=== PATIENT | male | born 1945 | race Hispanic/Latino ===

== ENCOUNTER 2023-04-18 05:58 | Day surgery (SDC) | payer OTHER ==
[2023-04-17 15:43] LABS: BASOPHILS # (AUTO) 0.05 K/uL (0.00-0.20); BASOPHILS % (AUTO) 0.7 % (0.0-5.0); EOSINOPHILS % (AUTO) 3.9 % (0.0-8.0); IMMATURE GRANULOCYTE ABSOLUTE 0.03 K/uL (0-1); LYMPHOCYTES # (AUTO) 1.9 K/uL (1.0-4.8); MEAN CORPUSCULAR HGB CONC 32.6 g/dL (32.0-36.0); MONOCYTES # (AUTO) 0.9 K/uL (0.1-1.0); MONOCYTES % (AUTO) 11.1 % (3.0-13.0); NEUTROPHILS # (AUTO) 4.5 K/uL (1.8-7.7); NEUTROPHILS % (AUTO) 58.9 % (40.0-77.0); PLATELET COUNT (AUTO) 148 K/uL (130-400); RED BLOOD CELL COUNT(AUTO) 4.27 MIL/uL (4.50-6.20); RED CELL DISTRIBUTION WIDTH 14.2 % (11.0-15.5); WHITE BLOOD COUNT (AUTO) 7.6 K/uL (4.8-10.8)
[2023-04-17 15:47] VITALS: BP 164/78; PULSE 62; RESP 19
[2023-04-17 16:02] LABS: CREATININE 1.8 mg/dL (0.5-1.5); POTASSIUM 4.3 mmol/L (3.5-5.1)
[2023-04-18] VITALS (16 sets, daily range): BP systolic 110–149; BP diastolic 61–89; PULSE 40–129; RESP 9–16
[~2023-04-18] VITALS: Ht 172.7 cm; Wt 71.5 kg
[~2023-04-18 05:58] MED LIST: APIX5TAB PO; ATOR40TA69 PO; DILT30TA3 PO; FURO20TA4 PO; LOSA25TA41 PO; METF-446 PO; METO100T14 PO; SEMA0.258 SQ; SODI325T PO
[2023-04-18] MEDS ORDERED: MIDAZOLAM HCL 1 MG/ML 2ML VIAL IVP ONE (06:30)
[2023-04-18] MEDS ORDERED: FENTANYL CITRATE PF 50 MCG/1 ML 2ML VIAL IVP ONE (06:30)
[2023-04-18] MEDS ORDERED: 0.9%NACL 1000ML 1,000 ML IV ONE (06:38)
[2023-04-18] MEDS ORDERED: NALOXONE HCL 1 MG/ML 2ML SYG IV SCH (07:00)
[2023-04-18] MEDS ORDERED: FLUMAZENIL 0.1MG/1ML 5ML VIAL IV SCH (07:00)
[2023-04-18] MEDS ORDERED: NALOXONE HCL 0.4 MG/1 ML ML ONE (07:24)
[2023-04-18] MEDS ORDERED: LIDOCAINE HCL 2% VISCOUS 15 ML UDCUP ONE (07:26)
== END 2023-04-18 08:52 | disposition home or self-care (01) ==
LOC: DAH 05:58 → EDSTATUS 04-19 08:00
PROVIDERS: ATTEND Internal Medicine
DX: I48.19 Other persistent atrial fibrillation (principal); R94.31 Abnormal electrocardiogram [ECG] [EKG]; Q25.49 Other congenital malformations of aorta; I70.0 Atherosclerosis of aorta; I34.0 Nonrheumatic mitral (valve) insufficiency; I49.3 Ventricular premature depolarization; I10 Essential (primary) hypertension; E11.9 Type 2 diabetes mellitus without complications; E78.5 Hyperlipidemia, unspecified; Z79.01 Long term (current) use of anticoagulants; Z79.899 Other long term (current) drug therapy; Z86.73 Personal history of transient ischemic attack (TIA), and cerebral infarction without residual deficits; Z87.891 Personal history of nicotine dependence; Z79.84 Long term (current) use of oral hypoglycemic drugs
CPT/HCPCS: 80048; 85025; 36415; 93005; 82948; 93325; 93312; J3010; J7030; J2250; A4615; A4215; A4223 ×3; A4657; A7002; A4222; A4221; A4663; A4216; A4606; 99152; 99153; J2310; J3490; G0500

== ENCOUNTER → 2023-08-23 | Outpatient (CLI) | payer OTHER ==
[~2023-08-23] VITALS: Ht 167.6 cm; Wt 70.0 kg
[~2023-08-23] MED LIST changes: +CHOL100040 PO; +CYAN-106 PO; +DABI150C PO; +DAPA5TAB PO; +DILT120T PO; +FENTANYL CITRATE PF 50 MCG/1 ML 2ML VIAL ONE; +FERS325 PO; +FOLI1TAB85 PO; +PROPOFOL 10 MG/ML 20ML VIAL IV ONE; +ROCURONIUM BROMIDE 10MG/1ML 5ML VL ONE; +SUCCINYLCHOLINE CHLORIDE 20 MG/ML 10 ML VIAL ONE
[2023-08-23 12:15] VITALS: BP 154/56; PULSE 54; RESP 18
[2023-08-23 12:33] LABS: BASOPHILS # (AUTO) 0.07 K/uL (0.00-0.20); EOSINOPHILS % (AUTO) 2.8 % (0.0-8.0); HEMATOCRIT 37.8 % (42-54); IMMATURE GRANULOCYTE ABSOLUTE 0.06 K/uL (0-1); LYMPHOCYTES # (AUTO) 1.3 K/uL (1.0-4.8); LYMPHOCYTES % (AUTO) 18.2 % (21.0-51.0); MEAN CORPUSCULAR HEMOGLOBIN 30.8 pg (27.0-33.0); MEAN CORPUSCULAR VOLUME 85.7 fL (79-99); MONOCYTES # (AUTO) 0.5 K/uL (0.1-1.0); MONOCYTES % (AUTO) 6.7 % (3.0-13.0); NEUTROPHILS % (AUTO) 70.5 % (40.0-77.0); PLATELET COUNT (AUTO) 136 K/uL (130-400); RED BLOOD CELL COUNT(AUTO) 4.41 MIL/uL (4.50-6.20); RED CELL DISTRIBUTION WIDTH 11.9 % (11.0-15.5); WHITE BLOOD COUNT (AUTO) 7.2 K/uL (4.8-10.8)
[2023-08-23 12:38] LABS: CREATININE 2.1 mg/dL (0.5-1.3)
[2023-08-25 10:55] VITALS: BP 152/74; PULSE 47; RESP 15
== END | disposition home or self-care (01) ==
LOC: DAH 12:04 → EDSTATUS 08-25 08:00 → DAH 08-25 10:43 → EDSTATUS 08-25 11:00 → DAH 08-25 11:30
PROVIDERS: ATTEND Internal Medicine
DX: I48.19 Other persistent atrial fibrillation (principal); I51.3 Intracardiac thrombosis, not elsewhere classified; I10 Essential (primary) hypertension; E78.5 Hyperlipidemia, unspecified; E11.9 Type 2 diabetes mellitus without complications
CPT/HCPCS: 36415; 80048; 82948; 85025